=== PATIENT | female | born 1970 ===

== ENCOUNTER 2017-08-07 11:05 | Emergency (ER) | payer MEDICAID, OTHER ==
[2017-08-07 11:32] VITALS: BMI 32.4
[2017-08-07 11:44] VITALS: O2SAT 98
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
--- NOTE | 2017-08-07 14:37 | RAD ---
PROCEDURE: Radiographs of the Lumbar Spine. HISTORY: Low back pain COMPARISON: No prior. FINDINGS: BONES: Normal alignment. No listhesis. No fracture. DISC SPACES: Unremarkable. OTHER FINDINGS: Right upper quadrant surgical clips. IMPRESSION: Unremarkable radiographs of the lumbar spine.
[2017-08-07 15:35] VITALS: BP 146/86; PULSE 61; RESP 15; TEMP 97.7
== END 2017-08-07 15:19 | disposition home or self-care (01) ==
LOC: H.ER 11:05
DX: M54.5 Low back pain (principal)
CPT/HCPCS: 72114; 81025; 96372; 99283; J1885